=== PATIENT | female | born 1930 | race Caucasian/White ===

== ENCOUNTER 2016-10-28 10:00 | Inpatient (IN) | payer MEDICARE, OTHER ==
[~2016-10-28] VITALS: Ht 149.9 cm; Wt 61.2 kg
--- NOTE | ~2016-10-28 | DS ---
PATIENT'S NAME: [facility] AGE: 86 Y [address] ROOM: [place] [address] LOCATION: [facility] ADMIT DATE: 11/09/2016 Discharge Summary DISCHARGE DATE: 11/12/2016 FAMILY PHYSICIAN: Valentina Willis MD ATTENDING PHYSICIAN: Ron Day PRIMARY DIAGNOSIS: Degenerative joint disease of the right knee. SECONDARY DIAGNOSES: 1. Asthma. 2. Hypertension. 3. Hyperlipidemia. 4. Restless legs syndrome. 5. Osteoporosis. 6. Depression. 7. Hypercholesterolemia. PROCEDURE PERFORMED: Right total knee arthroplasty with computer navigation. HISTORY: The patient is an 86-year-old female, who presents with advanced right knee degenerative joint disease and associated severely compromised activities of daily living. The patient has decided to proceed with total knee arthroplasty after having been thoroughly counseled regarding the risks, benefits, limitations and alternatives. Please refer to the outpatient clinic notes and admission history and physical for this patient. HOSPITAL COURSE: The patient underwent a right total knee arthroplasty on 11/09/2016 without complications. Spinal anesthesia plus adductor canal block plus periarticular local anesthesia was utilized. The patient received 24 hours of perioperative prophylactic antibiotics and remained hemodynamically stable, neurovascularly intact throughout the entire hospital course. The postoperative prophylactic deep venous thrombosis prophylaxis consisted of Xarelto, early mobilization and pneumatic compression devices. Daily physical therapy for gait training, transfer training range of motion and quadriceps isometric exercises were received. The patient progressed well in physical therapy. On the date of discharge, 11/12/2016, the incision at the knee was healing well and showed no signs of infection. DISPOSITION: Transitional Care Unit for further wound monitoring and physical therapy. DISCHARGE ACTIVITY: The patient is to bear weight as tolerated with range of motion and quadriceps isometric exercises as instructed. The operative extremity is to be elevated at least 90% of the day. There is to be sterile 4x4 gauze dressings to the incision daily. Dr. Day is to be notified PATIENT'S NAME: [facility] AGE: 86 Y [address] ROOM: [place] [address] LOCATION: [facility] ADMIT DATE: 11/09/2016 Discharge Summary DISCHARGE DATE: 11/12/2016 FAMILY PHYSICIAN: Valentina Willis MD ATTENDING PHYSICIAN: Ron Day immediately if there is any increased pain, fevers, chills erythema or drainage. DISCHARGE MEDICATIONS: 1. Xarelto 10 mg, take 1 tablet p.o. daily for DVT prevention. 2. [place] 5/325, take 1-2 tablets p.o. every 4 hours as needed for pain. 3. Valium 5 mg, take 1/2 tablet to 1 tablet every 6 hours as needed for muscle spasms. FOLLOWUP: Followup appointment is to be with Dr. Day from one week subsequent to dismissal from the transitional care unit for her initial postoperative evaluation and x-rays at that time. DEBBIE BREAUX FOR RON DAY MD TLB/modl /[id number] d: 11/17/16 0402 t: 12/05/16 1006, DISCHARGE SUMMARY
--- NOTE | ~2016-10-28 | OR ---
PATIENT'S NAME: [facility] AGE: 86 Y [address] ROOM: [place] [address] LOCATION: [facility] ADMIT DATE: 11/09/2016 OR/Procedure Report DISCHARGE DATE: FAMILY PHYSICIAN: Valentina Willis MD ATTENDING PHYSICIAN: RON CALLE SURGEON: Ron Calle MD CEILING INSULATION BLOWER: 1. DEBBIE Weaver. 2. John Medina CST/FLOWER CHENILLER. DATE OF PROCEDURE: 11/09/2016 PRE-OP DIAGNOSIS: Degenerative joint disease right knee. POST-OP DIAGNOSIS: Degenerative joint disease right knee. OPERATION: Right total knee arthroplasty with computer navigation. ANESTHESIA: Spinal anesthesia plus adductor canal block plus periarticular local anesthesia (ropivacaine with epinephrine and Toradol). ESTIMATED BLOOD LOSS: Less than 10 mL. DRAIN: None. SPECIMEN: None. COMPLICATIONS: None. IMPLANT SYSTEM: Jennifer Triathlon. Size 3 right posterior stabilized femoral component Size 2 universal modular tibial baseplate 11 mm posterior stabilized size 2 X3 tibial polyethylene insert 29 mm Oval X3 patella component (triple pegged). INDICATIONS FOR SURGERY: The patient is an 86-year-old female who presents with advanced right knee degenerative joint disease and associated severely compromised activities of daily living. The patient has decided to proceed with knee replacement after having been thoroughly counseled regarding the associated risks, benefits, and limitations. We have specifically reviewed the risks and implications of infection, deep venous thrombosis, pulmonary embolism, mortality, neurovascular complications, blood transfusion (and associated potential for disease transmission or transfusion reaction), stiffness, instability, mechanical deterioration of the components (due to wear and or loosening), and the potential need for revision. We have also emphasized the importance of active involvement and compliance with post- operative physical therapy as a means of optimizing range of motion and PATIENT'S NAME: [facility] AGE: 86 Y [address] ROOM: [place] [address] LOCATION: [facility] ADMIT DATE: 11/09/2016 OR/Procedure Report DISCHARGE DATE: FAMILY PHYSICIAN: Valentina Willis MD ATTENDING PHYSICIAN: RON CALLE functional recovery. Informed consent has been granted. DESCRIPTION OF PROCEDURE: The patient was positioned supine after administration of anesthesia and prophylactic antibiotics. A well-padded pneumatic tourniquet was placed around the right proximal thigh, and the right lower extremity was prepped and draped with vigilant sterile technique. The patient's name as well as the intended operative side and procedure were confirmed with a verbal time-out involving myself, the circulating nurse, the scrub nurse, and the anesthesiologist. Examination under anesthesia demonstrated no active skin lesions or masses. There was a large effusion. There was no erythema or abnormal warmth. There were no significant preexisting scars. Range of motion under anesthesia was from a 10 degree flexion contracture to 130 degrees of flexion. There was no ligamentous insufficiency. The right lower extremity was elevated and exsanguinated with an Esmarch wrap, and the pneumatic tourniquet was inflated to 300mmHg. The knee was approached through a longitudinal midline incision. A medial parapatellar arthrotomy was performed and the patella was everted. Examination of the joint space demonstrated a large amount of benign-appearing translucent synovial fluid. There were no loose bodies. There was mild generalized nonproliferative synovitis. The cruciate ligaments were intact. There was a moderate-sized popliteal cyst, which was decompressed into the joint by dilating its point of communication with the posteromedial joint capsule. There was full-thickness loss of articular cartilage involving the posterolateral half of the lateral femoral condyle and a 2.5 cm diameter region at the posterior half of the lateral tibial plateau. There was a moderate-sized osteophyte at the lateral femoral condyle. There were small osteophytes at the lateral tibial plateau, medial trochlea, and medial femoral condyle. There was moderate chondrocalcinosis at the medial meniscus. There was mild inner perimeter tearing of the medial meniscus. There was extensive complex degenerative tearing of the remnant of the lateral meniscus. There were grade 2 degenerative changes at the medial femoral condyle. There were moderate grade 3 degenerative changes involving the lateral half of the medial tibial plateau and the medial half of the femoral trochlea. There were moderate grade 3 degenerative changes involving 90% of the medial facet of the patella and across the equator of the patella at the lateral facet. Remnants of the menisci and cruciate ligaments were excised. The EyeJot navigation femoral tracker was pinned in place at the distal aspect of the femoral trochlea. Absence of motion between the femur and the tracking device was confirmed manually and visually. Femoral osseous landmarks were obtained in order to calibrate the computer navigation system. Landmarks PATIENT'S NAME: [facility] AGE: 86 Y [address] ROOM: [id number] [place], [place] [address] LOCATION: [facility] ADMIT DATE: 11/09/2016 OR/Procedure Report DISCHARGE DATE: FAMILY PHYSICIAN: Valentina Willis MD ATTENDING PHYSICIAN: RON CALLE included the center of rotation of the ipsilateral hip, the center-point of the distal femur, the femoral AP axis, 57 points on the medial femoral condyle articular surface, and 57 points on the lateral femoral condyle articular surface. The Joystickers computer navigation system was subsequently utilized to position the distal femoral resection block such that the distal femoral resection was performed perfectly perpendicular to the femoral mechanical axis. The distal femoral resection was performed with a TimeGenius oscillating saw. The Joystickers computer navigation tibial tracker was pinned in place at the anterior aspect of the tibial plateau. Absence of motion between the tibia and the tracking device was confirmed manually and visually. Tibial osseous landmarks were obtained in order to calibrate the computer navigation system. Landmarks included the center-point of the tibial plateau, the AP tibial axis, 57 points on the medial tibial plateau articular surface, 57 points on the lateral tibial plateau articular surface, the medial malleolus, and the lateral malleolus. The Joystickers computer navigation system was subsequently utilized to position the proximal tibial resection block such that the proximal tibial resection was performed perfectly perpendicular to the tibial mechanical axis. The proximal tibial resection was performed with a [employer] Precision oscillating saw. Perpendicularity of the tibial resection with respect to the tibial shaft axis was reconfirmed by inserting a spacer- block attached to an extramedullary guide mary. External rotation of the anterior and posterior femoral resections was set parallel to the epicondylar axis and carefully adjusted in order to create a rectangular flexion gap. The box resection was performed with a reciprocating saw. Anterior and posterior chamfer resections were performed with the oscillating saw. Posterior condyle osteophytes were excised with an osteotome. All other osteophytes were excised with a rongeur. Resection of all remnants of the menisci was reconfirmed. Flexion and extension gaps were confirmed to be symmetric and well balanced with a spacer-block technique. The patella resection was performed with an oscillating saw such that the composite thickness of the reconstructed patella was equivalent to the thickness of the round valley patella. Patella tracking was confirmed to be optimal. A partial lateral retinacular release was required in order to optimize patella tracking. All trial components were removed and all prepared osseous surfaces were thoroughly irrigated with pulsatile saline lavage and dried prior to cementing all three components in a single stage using Jennifer Simplex cement containing pre-mixed tobramycin. All extruded excess cement was removed. The entire joint space was thoroughly inspected and thoroughly irrigated with bacteriostatic pulsatile saline lavage to assure that there was no residual PATIENT'S NAME: [facility]UNKET[facility] AGE: 86 Y [address] ROOM: [address] [address] LOCATION: [facility] ADMIT DATE: 11/09/2016 OR/Procedure Report DISCHARGE DATE: FAMILY PHYSICIAN: Valentina Willis MD ATTENDING PHYSICIAN: RON CALLE debris of any sort. Final range of motion was from full extension (with no passive hyperextension) to 130 degrees of flexion. Patella tracking was reconfirmed to be optimal. There was excellent anteroposterior stability at 90 degrees of flexion. There was less than 1 mm of medial lift-off to valgus stress in full extension. There was less than 1 mm of lateral lift-off to varus stress in full extension. The arthrotomy was closed with multiple simple and [id number] interrupted #1 Vicryl. Subcutaneous tissues were thoroughly re-irrigated with bacteriostatic pulsatile saline lavage. Subcutaneous tissues were re- approximated with simple buried interrupted #0 Vicryl sutures. The skin was closed with simple buried interrupted 2-0 Vicryl sutures followed by surgical yolanda. The dressing consisted of Xeroform gauze, 4x4 gauze, ABD pads and two 6-inch Enrique Wraps. There were no intra-operative complications. It should be noted that the physician's client account assistant played an active, integral role throughout this entire operation. By providing expert retraction, they greatly facilitated and expedited safe and effective exposure of the distal femur, proximal tibia and patella for preparation and implantation of the components. They were also actively involved in the patient's positioning, prepping and draping, as well as wound closure. MD GEORGE RUDD/aren /[id number] d: 11/09/162030 t: 11/10/164, OPERATIVE SUMMARY
[~2016-10-28 10:00] MED LIST: AVAPRO150 MG PO; MEVACOR20 MG PO; MIRAPEX0.5 MG PO
[2016-10-28] MEDS ORDERED: ARICEPT5 MG PO (10:21)
[2016-10-28] MEDS ORDERED: KLONOPIN1 MG PO (10:21)
[2016-10-28] MEDS ORDERED: CELEXA20 MG PO (10:21)
[2016-10-28] MEDS ORDERED: DESYREL50 MG PO (10:22)
[2016-10-28] MEDS ORDERED: BREO ELLIPTA 11 EACH INH (10:22)
[2016-10-28] MEDS ORDERED: NORCO 7.5-3251 EACH PO (10:29)
[2016-10-28] MEDS ORDERED: VITAMIN D35000 UNI1 PO (10:30)
[2016-10-28] MEDS ORDERED: ALBUTEROL2.5 MG/31 INH (10:30)
[2016-10-28] MEDS ORDERED: TYLENOL325 MG PO (10:31)
[2016-10-28] MEDS ORDERED: BIOTIN5000 MCG PO (10:31)
[2016-10-28] MEDS ORDERED: ASCORBIC ACID500 MG PO (10:31)
[2016-10-29] MEDS ORDERED: PROLIA60 MG/ML IM (14:48)
[2016-11-09] MEDS ORDERED: DURAGESIC 50MC50 MCG TRANS (07:52)
== END 2016-11-12 14:13 | DRG 470 ==
LOC: G3N 11-09 07:03
PROVIDERS: ADMIT Orthopaedic Surgery
PROC: 8E0YXBZ Computer Assisted Procedure of Lower Extremity (ICD-10-PCS; principal; 2016-11-09)
PROC: 0SRC0J9 Replacement of Right Knee Joint with Synthetic Substitute, Cemented, Open Approach (ICD-10-PCS; principal; 2016-11-09)
DX: M17.11 Unilateral primary osteoarthritis, right knee (principal); F03.90 Unspecified dementia, unspecified severity, without behavioral disturbance, psychotic disturbance, mood disturbance, and anxiety; M11.262 Other chondrocalcinosis, left knee; M11.261 Other chondrocalcinosis, right knee; I10 Essential (primary) hypertension; E78.5 Hyperlipidemia, unspecified; J45.909 Unspecified asthma, uncomplicated; G89.29 Other chronic pain; M54.5 Low back pain; F32.9 Major depressive disorder, single episode, unspecified; M81.0 Age-related osteoporosis without current pathological fracture; G25.81 Restless legs syndrome; G47.00 Insomnia, unspecified
CPT/HCPCS: C1713; C1776; J0690; J1100; J1170; J1885; J2001; J2405; J2795; J7120

== ENCOUNTER 2016-11-12 14:30 | Inpatient (IN) | payer MEDICARE, OTHER ==
[~2016-11-12] VITALS: Ht 149.9 cm; Wt 62.5 kg
--- NOTE | ~2016-11-12 | DS ---
PATIENT'S NAME: [facility] AGE: 86 Y [address] ROOM: [facility] [place], [place] [address] LOCATION: [facility] ADMIT DATE: 11/12/2016 Discharge Summary DISCHARGE DATE: 11/19/2016 FAMILY PHYSICIAN: Valentina Willis MD ATTENDING PHYSICIAN: Ron Day PRIMARY DIAGNOSIS: Degenerative joint disease of the right knee. SECONDARY DIAGNOSES: Include, 1. Asthma. 2. Hypertension. 3. Hyperlipidemia. 4. Restless legs syndrome. 5. Osteoporosis. 6. Depression. 7. Hypercholesterolemia. PROCEDURE PERFORMED: Right total knee arthroplasty with computer navigation. HISTORY: The patient is an 86-year-old female, who presents with advanced right knee degenerative joint disease and associated severely compromised activities of daily living. The patient has decided to proceed with total knee arthroplasty after having been thoroughly counseled regarding the risks, benefits, limitations, and alternatives. Please refer to the outpatient clinic notes and admission history and physical for this patient. HOSPITAL COURSE: The patient underwent a right total knee arthroplasty on 11/09/2016 without complications. Spinal anesthesia plus adductor canal block plus periarticular local anesthesia was utilized. The patient received 24 hours of perioperative prophylactic antibiotics and remained hemodynamically stable, neurovascularly intact throughout the entire hospital course. The postoperative prophylactic deep venous thrombosis prophylaxis consisted of Xarelto, early mobilization and pneumatic compression devices. Daily physical therapy for gait training, transfer training range of motion and quadriceps isometric exercises were received. The patient progressed well in physical therapy. On the date of discharge, 11/12/2016, the incision at the knee was healing well and showed no signs of infection. DISPOSITION: Home following a short stay in the transitional care unit. DISCHARGE ACTIVITY: The patient is to bear weight as tolerated with range of motion and quadriceps isometric exercises as instructed. The operative extremity is to be elevated at least 90% of the day. There is to be sterile 4x4 gauze dressings to the incision daily. Dr. Day is to be notified immediately if there is any increased pain, fevers, chills erythema or PATIENT'S NAME: [facility] AGE: 86 Y [address] ROOM: [facility] [place], [place] [address] LOCATION: [facility] ADMIT DATE: 11/12/2016 Discharge Summary DISCHARGE DATE: 11/19/2016 FAMILY PHYSICIAN: Valentina Willis MD ATTENDING PHYSICIAN: Ron Day. DISCHARGE MEDICATIONS: Include, 1. Diazepam 5 mg, take 1 tablet p.o. every 6 hours as needed for muscle spasms. 2. Dilaudid 2 mg, take 1 tablet every 2 hours as needed for pain. FOLLOWUP: Followup date is 1 week subsequent to dismissal from the hospital for initial postoperative evaluation and x-rays at that time. DEBBIE BREAUX FOR RON DAY MD TLB/modl /[id number] d: 12/01/16 0419 t: 12/01/16 0932, DISCHARGE SUMMARY
--- NOTE | ~2016-11-12 | DS ---
PATIENT'S NAME: [facility] AGE: 86 Y [address] ROOM: [place] [address] LOCATION: [facility] ADMIT DATE: 11/09/2016 Discharge Summary DISCHARGE DATE: 11/12/2016 FAMILY PHYSICIAN: Valentina Willis MD ATTENDING PHYSICIAN: Ron Day PRIMARY DIAGNOSIS: Degenerative joint disease of the right knee. SECONDARY DIAGNOSES: 1. Asthma. 2. Hypertension. 3. Hyperlipidemia. 4. Restless legs syndrome. 5. Osteoporosis. 6. Depression. 7. Hypercholesterolemia. PROCEDURE PERFORMED: Right total knee arthroplasty with computer navigation. HISTORY: The patient is an 86-year-old female, who presents with advanced right knee degenerative joint disease and associated severely compromised activities of daily living. The patient has decided to proceed with total knee arthroplasty after having been thoroughly counseled regarding the risks, benefits, limitations and alternatives. Please refer to the outpatient clinic notes and admission history and physical for this patient. HOSPITAL COURSE: The patient underwent a right total knee arthroplasty on 11/09/2016 without complications. Spinal anesthesia plus adductor canal block plus periarticular local anesthesia was utilized. The patient received 24 hours of perioperative prophylactic antibiotics and remained hemodynamically stable, neurovascularly intact throughout the entire hospital course. The postoperative prophylactic deep venous thrombosis prophylaxis consisted of Xarelto, early mobilization and pneumatic compression devices. Daily physical therapy for gait training, transfer training range of motion and quadriceps isometric exercises were received. The patient progressed well in physical therapy. On the date of discharge, 11/12/2016, the incision at the knee was healing well and showed no signs of infection. DISPOSITION: Transitional Care Unit for further wound monitoring and physical therapy. DISCHARGE ACTIVITY: The patient is to bear weight as tolerated with range of motion and quadriceps isometric exercises as instructed. The operative extremity is to be elevated at least 90% of the day. There is to be sterile 4x4 gauze dressings to the incision daily. Dr. Day is to be notified PATIENT'S NAME: [facility] AGE: 86 Y [address] ROOM: [place] [address] LOCATION: [facility] ADMIT DATE: 11/09/2016 Discharge Summary DISCHARGE DATE: 11/12/2016 FAMILY PHYSICIAN: Valentina Willis MD ATTENDING PHYSICIAN: Ron Day immediately if there is any increased pain, fevers, chills erythema or drainage. DISCHARGE MEDICATIONS: 1. Xarelto 10 mg, take 1 tablet p.o. daily for DVT prevention. 2. [place] 5/325, take 1-2 tablets p.o. every 4 hours as needed for pain. 3. Valium 5 mg, take 1/2 tablet to 1 tablet every 6 hours as needed for muscle spasms. FOLLOWUP: Followup appointment is to be with Dr. Day from one week subsequent to dismissal from the transitional care unit for her initial postoperative evaluation and x-rays at that time. DEBBIE BREAUX FOR RON DAY MD TLB/modl /[id number] d: 11/17/16 0402 t: 11/24/16 0753, DISCHARGE SUMMARY
--- NOTE | ~2016-11-12 | DS ---
PATIENT'S NAME: [facility] AGE: 86 Y [address] ROOM: [place] [address] LOCATION: [facility] ADMIT DATE: 11/09/2016 Discharge Summary DISCHARGE DATE: 11/12/2016 FAMILY PHYSICIAN: Valentina Willis MD ATTENDING PHYSICIAN: Ron Day PRIMARY DIAGNOSIS: Degenerative joint disease of the right knee. SECONDARY DIAGNOSES: 1. Asthma. 2. Hypertension. 3. Hyperlipidemia. 4. Restless legs syndrome. 5. Osteoporosis. 6. Depression. 7. Hypercholesterolemia. PROCEDURE PERFORMED: Right total knee arthroplasty with computer navigation. HISTORY: The patient is an 86-year-old female, who presents with advanced right knee degenerative joint disease and associated severely compromised activities of daily living. The patient has decided to proceed with total knee arthroplasty after having been thoroughly counseled regarding the risks, benefits, limitations and alternatives. Please refer to the outpatient clinic notes and admission history and physical for this patient. HOSPITAL COURSE: The patient underwent a right total knee arthroplasty on 11/09/2016 without complications. Spinal anesthesia plus adductor canal block plus periarticular local anesthesia was utilized. The patient received 24 hours of perioperative prophylactic antibiotics and remained hemodynamically stable, neurovascularly intact throughout the entire hospital course. The postoperative prophylactic deep venous thrombosis prophylaxis consisted of Xarelto, early mobilization and pneumatic compression devices. Daily physical therapy for gait training, transfer training range of motion and quadriceps isometric exercises were received. The patient progressed well in physical therapy. On the date of discharge, 11/12/2016, the incision at the knee was healing well and showed no signs of infection. DISPOSITION: Transitional Care Unit for further wound monitoring and physical therapy. DISCHARGE ACTIVITY: The patient is to bear weight as tolerated with range of motion and quadriceps isometric exercises as instructed. The operative extremity is to be elevated at least 90% of the day. There is to be sterile 4x4 gauze dressings to the incision daily. Dr. Day is to be notified PATIENT'S NAME: [facility] AGE: 86 Y [address] ROOM: [place] [address] LOCATION: [facility] ADMIT DATE: 11/09/2016 Discharge Summary DISCHARGE DATE: 11/12/2016 FAMILY PHYSICIAN: Valentina Willis MD ATTENDING PHYSICIAN: Ron Day immediately if there is any increased pain, fevers, chills erythema or drainage. DISCHARGE MEDICATIONS: 1. Xarelto 10 mg, take 1 tablet p.o. daily for DVT prevention. 2. [place] 5/325, take 1-2 tablets p.o. every 4 hours as needed for pain. 3. Valium 5 mg, take 1/2 tablet to 1 tablet every 6 hours as needed for muscle spasms. FOLLOWUP: Followup appointment is to be with Dr. Day from one week subsequent to dismissal from the transitional care unit for her initial postoperative evaluation and x-rays at that time. DEBBIE BREAUX FOR RON DAY MD TLB/modl /[id number] d: t: 11/23/16 1231, DISCHARGE SUMMARY
--- NOTE | ~2016-11-12 | DS ---
PATIENT'S NAME: [facility] AGE: 86 Y [address] ROOM: [place] [address] LOCATION: [facility] ADMIT DATE: 11/09/2016 Discharge Summary DISCHARGE DATE: 11/12/2016 FAMILY PHYSICIAN: Valentina Willis MD ATTENDING PHYSICIAN: Ron Day PRIMARY DIAGNOSIS: Degenerative joint disease of the right knee. SECONDARY DIAGNOSES: 1. Asthma. 2. Hypertension. 3. Hyperlipidemia. 4. Restless legs syndrome. 5. Osteoporosis. 6. Depression. 7. Hypercholesterolemia. PROCEDURE PERFORMED: Right total knee arthroplasty with computer navigation. HISTORY: The patient is an 86-year-old female, who presents with advanced right knee degenerative joint disease and associated severely compromised activities of daily living. The patient has decided to proceed with total knee arthroplasty after having been thoroughly counseled regarding the risks, benefits, limitations and alternatives. Please refer to the outpatient clinic notes and admission history and physical for this patient. HOSPITAL COURSE: The patient underwent a right total knee arthroplasty on 11/09/2016 without complications. Spinal anesthesia plus adductor canal block plus periarticular local anesthesia was utilized. The patient received 24 hours of perioperative prophylactic antibiotics and remained hemodynamically stable, neurovascularly intact throughout the entire hospital course. The postoperative prophylactic deep venous thrombosis prophylaxis consisted of Xarelto, early mobilization and pneumatic compression devices. Daily physical therapy for gait training, transfer training range of motion and quadriceps isometric exercises were received. The patient progressed well in physical therapy. On the date of discharge, 11/12/2016, the incision at the knee was healing well and showed no signs of infection. DISPOSITION: Transitional Care Unit for further wound monitoring and physical therapy. DISCHARGE ACTIVITY: The patient is to bear weight as tolerated with range of motion and quadriceps isometric exercises as instructed. The operative extremity is to be elevated at least 90% of the day. There is to be sterile 4x4 gauze dressings to the incision daily. Dr. Day is to be notified PATIENT'S NAME: [facility] AGE: 86 Y [address] ROOM: [place] [address] LOCATION: [facility] ADMIT DATE: 11/09/2016 Discharge Summary DISCHARGE DATE: 11/12/2016 FAMILY PHYSICIAN: Valentina Willis MD ATTENDING PHYSICIAN: Ron Day immediately if there is any increased pain, fevers, chills erythema or drainage. DISCHARGE MEDICATIONS: 1. Xarelto 10 mg, take 1 tablet p.o. daily for DVT prevention. 2. Admire 5/325, take 1-2 tablets p.o. every 4 hours as needed for pain. 3. Valium 5 mg, take 1/2 tablet to 1 tablet every 6 hours as needed for muscle spasms. FOLLOWUP: Followup appointment is to be with Dr. Day from one week subsequent to dismissal from the transitional care unit for her initial postoperative evaluation and x-rays at that time. DEBBIE BREAUX FOR RON DAY MD TLB/modl /[id number] d: 11/17/16 0402 t: 11/24/16 1032, DISCHARGE SUMMARY
[~2016-11-12 14:30] MED LIST changes: +ALBUTEROL2.5 MG/31 INH; +ARICEPT5 MG PO; +ASCORBIC ACID500 MG PO; +BIOTIN5000 MCG PO; +BREO ELLIPTA 11 EACH INH; +CELEXA20 MG PO; +DESYREL50 MG PO; +DURAGESIC 50MC50 MCG TRANS; +KLONOPIN1 MG PO; +NORCO 7.5-3251 EACH PO; +PROLIA60 MG/ML IM; +TYLENOL325 MG PO; +VITAMIN D35000 UNI1 PO
--- NOTE | 2016-11-12 18:37 | NUR ---
D: Nursing ADMISSION NOTE I: Nursing interventions provided to support the patient's individual plan of care R: MOBILITY-- 1-2 ASSIST GB/WALKER, AMBULATES SLOW NUTRITION-- GOOD APPETITE, REGULAR DIET SKIN/INCISIONS/WOUNDS-- R)KNEE INCISION KHALIDA, GUAZE AND TUBIGRIP SELF CARES-- SET UP ASSIST WITH ADLS BOWEL/BLADDER-- CONTINENT B/B, CALLS APPROPRIATELY FOR BR RESPIRATORY-- ROOM AIR- DOES HAVE ASTHMA AND MAY WHEEZE WITH INCREASED RESPIRATIONS BROUGHT ON BY PAIN, PAIN-- POOR PAIN CONTROL, KEEP PAIN MEDS ROUTINE, ICE TO KNEE AT ALL TIMES PSYCHOSOCIAL-- HAS ANXIETY AND DEPRESSION COGNITION-- ALERT/ORIENTATED- DIAGNOSIS OF DEMENTIA, SPECIAL NEEDS-- NEHAL HOSE, FOOT PUMPS BLEEDING-- DVT PROPHYLAXIS ON HOLD FOR INCREASED BLEEDING TO INCISION SITE ON 11/11/16, RESTART ON 11/13/16. NO BLEEDING TODAY SENSORY IMPAIRMENTS/DENTAL NEEDS: OWN TEETH, GLASSES, SEES DENTIST REGULARLY. HEARS WELL TEACHING NEEDS-- TRANSFERS, PT/OT, MEDICATIONS, INFECTION CONCERNS: RISK FOR ELOPEMENT: NO NEED FOR BED/MOVEMENT ALARM: YES DISMISSAL PLANS: HOME WITH HOME HEALTH Other: FRIEND/NEIGHBOR SUAD IS MEDICAL POA. PAPERS AND PHONE NUMBER ON CHART. P: Current plan of care reviewed and updated RENETTA JORDAN 11/12/16
--- NOTE | 2016-11-13 02:25 | NUR ---
Significant Event: Alert & oriented. Rt knee has been very painful. Ice applied. Dilaudid given 1800 & 0015. Valium given 0115 and also slept well after that. Rt knee has yolanda intact, covered with gauze & tubigrip. Up with 1 assist/gb/walker. She is to start anticoagulants today. She has an implanted pain stimulator in back and it is off. She wears TEDS and foot pumps. Follow up:
--- NOTE | 2016-11-13 12:47 | NUR ---
Significant Event: At start of shift, pt is crying and very guarded - states pain is "1000/10" and is very focused on it. Attempted to get pt to focus on nurse; and gave prn dilaudid at 0645, as well as prn ativan. Pt obtained tolerable pain level. Gave another dilaudid at 0845 prior to therapy - pt tolerated therapy well. At noon, pt thought she did not want to take any more pain meds "for the rest of the day". Offered tylenol to keep pt comfortable and she agreed. Has been resting comfortably in her recliner. Up to b/r with 1 assist/gait belt/walker, moves very slowly. Dressing changed L) knee; scant amt dried bloody drnge. Daysi intact, wound approximated. CSM WNL. Follow up:
--- NOTE | 2016-11-13 13:42 | NUR ---
TCU-Social Assessment & History Marital status: Children/Grandchildren: Daughter lives in [place], [place] and is an MD. Son lives in [place] and is an tuberculosis specialist. Son lives in [place] and is a Ditcher Operator and has 3 sons. DPOA: on file Name of DPOA: Faina Mijares of [place], [place] and Naga Mijares of [place], [place]. Admitted from: [address] [place] [address] Admission date to TCU: 11-12-16 Reason for admission: continued OT/PT after R) knee replacement surgery with . Patient/family received resident rights upon admission: yes in admission packet Prior level of functioning: independent with ADL's. Does have a resort housekeeper. Prior living situation: lives alone in a [facility]. Patient states she enjoys living alone. Financial resources: patient has medicare and a supplemental policy. Resources used/available: good friend and neighbor Jaime - retired RN. Cancer Program Consultant. Wants to use [facility] for outpatient PT. Has a high rise toilet, a cane and FWW. Friend Jaime to obtaine a adjunct instructor of women's studies and shower chair for patient, and whatever else OT/PT may recommend. Patient aware of [employer], however states she made a necklace/pouch to wear around her neck so she always has her phone on her. Family support available: patient talks highly of her family, but states they are all very busy professionals. Understands nature of health condition: yes Recognizes impact of health condition on lifestyle: yes, is in hopes after therapy is completed, she can return to her active volunteer lifestyle at [facility]. 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 She volunteered for [employer] for many years through [employer], before she moved to [place]. Behavior/Emotional needs: very kind, very gracious and polite. Legal concerns: n/a Spiritual: Member of [facility] [employer]. and have been up to visit patient. Discharge goal: patient plans to d/c to home, where she lives alone and do outpatient PT at [facility]. ELOS 10-12 days on TCU with projected d/c date initially set at 11-24-16. Activities: Patient will be encouraged to participate in "ala carte" activities offered during her short stay on TCU. Patient enjoys visiting and has many stories to tell. She has her rosary at bedside and a book to read. A current calendar of events is posted at bedside.
--- NOTE | 2016-11-14 02:26 | NUR ---
Significant Event: Alert & oriented. Doing very well. Up with 1 assist/gb/walker. KEEP PAIN UNDER CONTROL. Dilaudid given 2019, 2354, and will try to give again 03-. Has slept well . She has a implanted stimular in back I believe, that is off at this time. Rt knee has yolanda intact at this time with gauze and tubegrip over it. Ice changed frequently. Very appreciative of all that you do. Follow up:
--- NOTE | 2016-11-14 12:27 | NUR ---
Significant Event: Alert/oriented. VSS. 1a walker/gb. Right knee incision with yolanda approx. Gauze and tubigrip to cover. Takes dilaudid prn for pain control. Walks halls multiple time today. Ordered new mekhi hose, could only find one in room this am. Ice packs to knee off/on this shift. Follow up:
--- NOTE | 2016-11-15 00:55 | NUR ---
Significant Event: Pt has a very rough 1/2 of shift. she was in a lot of pain starting at rating it a 10. Dilaudid given @ 1730 on days, then for me at 1934, 2136, 39. I also gave valium @ 2136, Ice was also kept on her leg. She felt she over worked her knee yesterday. Was finally rating pain a 4 @ 0040. and finally slept. Foot pumps on. Follow up:
--- NOTE | 2016-11-15 12:46 | NUR ---
Significant Event: Alert/oriented. VSS. 1a walker/gb. Right knee incision with yolanda intact, dry gauze and tubipgrip to cover. Takes prn dilaudid this shift for pain control. Follow up:
--- NOTE | 2016-11-16 01:45 | NUR ---
Significant Event: Alert & oriented. Had a hard time getting pain under control again tonight. Dilaudid was given at 1745 on days. At 185 rating pain a 10, so valium given. at 2203 Dilaudid was given rating pain again at a 10, 2205 dilaudid given rating pain an 8. Finally at 2358, dilaudid given raintg pain a 2. Ice was given as well. Will repeat dilaudid around 3-400. Wears NEHAL hose and foot pumps. Daysi intact to rt knee. Incision looks good. No drainage noted. Follow up:
--- NOTE | 2016-11-16 11:50 | NUR ---
Significant Event: AMBULATES WITH ASSIST OF 1 USING GAIT BELT AND WALKER. REQUESTS DILAUDID APPROX. EVERY 3 HOURS FOR RIGHT KNEE PAIN. INCISION WELL APPROXIMATED WITH KHALIDA INTACT GAUZE DRESSING CHANGED THIS AM AND HELD IN PLACE WITH TUBIGRIP. NEW ORDER TODAY FOR NEURONTIN AT HS AND INCREASED VALIUM TO 5MG Q6 HOURS PRN. PLEASANT AND COOPERATIVE WITH CARES. Follow up:
--- NOTE | 2016-11-16 12:08 | NUR ---
Student nurse provided patient cares from 0600 to 1215. Nixon Salcido RN, [facility] Instructor
--- NOTE | 2016-11-16 16:09 | NUR ---
therapy indicates patient can d/c on 11-19-16. Patient in agreement to plan. Friend Jaime RN and neighbor, looking into caregivers for patient to hire at home initially. Patient and friend Jaime aware outpatient therapy will be ordered upon d/c and in agreement with plan.
--- NOTE | 2016-11-17 02:31 | NUR ---
Significant Event: Alert but confused as to the time of day. She keeps saying Good Morning and when asked if she was ready to go to bed she said it was to early then in the next sentence she states, "I am so tired." One assist/gait belt/walker. Refused to take milk of magnesia tonight. Received Dilaudid for pain control at 2032 and Valium at 2229 for pain in right knee. Ice on right knee. Neurontin given at HS as per MD order. Follow up: Pain control
--- NOTE | 2016-11-17 15:26 | NUR ---
Significant Event: AMBULATES WITH 1 ASSIST GAIT BELT AND WALKER. REQUESTED DILAUDID X2 THIS SHIFT. NO BM SINCE 11/12 MIRALAX MIXED WITH PRUNE JUICE GIVEN WELL MILK OF MAG. NO RESULTS AT THIS TIME. PARTICIPATED WITH THERAPIES ORDERED. PLEASANT AND COOPERATIVE WITH CARES. Follow up:
--- NOTE | 2016-11-18 02:08 | NUR ---
Significant Event: Alert & oriented. Had a wonderful night and slept well. Had dilaudid @ valium @ 2015 and slept well tonight. at that time denied having pain, but wanted it for anticipated pain. Wears bilateral NEHAL hose. Rt knee had ice packs on it. [place] are intact but less edema and ecchymosis than 2 days ago. [place] are to be removed today. Up to bathroom with 1 assist/gb with minimal assist. Follow up: Remove yolanda!
--- NOTE | 2016-11-18 11:55 | NUR ---
I have reviewed the charting and supervised the care by Brennan, student nurses, for the shift of 0660 - Noon
--- NOTE | 2016-11-18 15:14 | NUR ---
Significant Event:VSS.RA.LAST DIALUDID PO GIVEN AT 1400 FOR RT KNEE INCISION PAIN WITH RELIEF.KHALIDA REMOVED.STERI STRIPS APPLIED. UP WITH 1 ASSIST+WALKER. PLANS TO DC TO HOME TOMORROW. Follow up:WILL CONTINUE TO MONITOR PER PLAN OF CARE.
--- NOTE | 2016-11-19 03:23 | NUR ---
D: Nursing Discharge Summary From 11-12 to 11-19 I: Nursing interventions provided to support the patient's individual plan of care R: MOBILITY--Mod I in room with walker NUTRITION-- Regular diet SKIN/INCISIONS/WOUNDS-- R)knee steristrips SELF CARES-- Independent with ADLs BOWEL/BLADDER-- Continent of bowel and bladder RESPIRATORY-- Room air PAIN-- Requests Dilaudid for pain PSYCHOSOCIAL-- History of anxiety and depression COGNITION-- Alert and oriented SPECIAL NEEDS-- Outpatient physical therapy BLEEDING-- Monitor incision SENSORY IMPAIRMENTS/DENTAL NEEDS: Glasses TEACHING NEEDS-- Medications INFECTION CONCERNS: Monitor incision to knee for s/s of infection RISK FOR ELOPEMENT: No NEED FOR BED/MOVEMENT ALARM: at hs per protocol DISMISSAL PLANS: To home P: Current plan of care reviewed and updated 11-19 Juanis Campbell RN
[2016-11-19] MEDS ORDERED: COLACE100 MG PO (09:27)
[2016-11-19] MEDS ORDERED: VALIUM5 MG PO ×2 (09:39→09:41)
[2016-11-19] MEDS ORDERED: DILAUDID 2MG(HYD2 MG PO (09:43)
[2016-11-19] MEDS ORDERED: MILK OF MA400 MG/5 M PO (09:54)
[2016-11-19] MEDS ORDERED: MIRALAX17 GM PO (09:56)
== END 2016-11-19 10:30 | disposition disaster alternative care site (69) | DRG 561 ==
LOC: GSNF 14:30
PROVIDERS: ADMIT Orthopaedic Surgery
PROC: F07Z9ZZ Gait Training/Functional Ambulation Treatment (ICD-10-PCS; principal; 2016-11-12)
PROC: F07L6ZZ Therapeutic Exercise Treatment of Musculoskeletal System - Lower Back / Lower Extremity (ICD-10-PCS; principal; 2016-11-12)
PROC: F08Z4ZZ Home Management Treatment (ICD-10-PCS; principal; 2016-11-12)
DX: Z47.1 Aftercare following joint replacement surgery (principal); F03.90 Unspecified dementia, unspecified severity, without behavioral disturbance, psychotic disturbance, mood disturbance, and anxiety; Z96.651 Presence of right artificial knee joint; I10 Essential (primary) hypertension; E78.5 Hyperlipidemia, unspecified; G25.81 Restless legs syndrome; J45.909 Unspecified asthma, uncomplicated; M81.0 Age-related osteoporosis without current pathological fracture; F32.9 Major depressive disorder, single episode, unspecified; G47.00 Insomnia, unspecified